=== PATIENT | female | born 1940 | race Caucasian/White ===

== ENCOUNTER 2021-01-22 12:21 | Emergency (ER) | payer MEDICARE, OTHER ==
[~2021-01-22] VITALS: Ht 162.6 cm; Wt 50.8 kg
--- NOTE | 2021-01-22 12:32 | NUR ---
TO ER BED 2, C/O DIZZINESS STARTED THIS MORNING, HX OF HTN, AAOX3, BREATHING EVEN AND NON LABORED, CHANGED INTO A GOWN, ATTACHED TO MONITOR, PROVIDED WARM BLANKET FOR COMFORT, FAMILY AT BEDSIDE
--- NOTE | 2021-01-22 12:32 | NUR ---
DR. CONSTANCE KELLER AT PT'S BEDSIDE
--- NOTE | 2021-01-22 12:51 | NUR ---
TAKEN TO CT
[2021-01-22 12:52] LABS: BASOPHILS % (AUTO) 0.5 % (0.0-2.0); EOSINOPHILS % (AUTO) 0.7 % (0.0-6.0); HEMATOCRIT 39 % (33-45); LYMPHOCYTES # (AUTO) 0.6 K/uL (0.8-4.8); LYMPHOCYTES % (AUTO) 6.9 % (20.0-44.0); MEAN CORPUSCULAR HGB CONC 33 g/dl (31.0-36.0); MEAN CORPUSCULAR VOLUME 89 fL (82-100); MONOCYTES # (AUTO) 0.2 K/uL (0.1-1.30); MONOCYTES % (AUTO) 3.1 % (2.0-12.0); NEUTROPHILS # (AUTO) 7.2 K/uL (1.8-8.9); NEUTROPHILS % (AUTO) 88.8 % (43.0-81.0); PLATELET COUNT (AUTO) 245 K/uL (150-450); RED BLOOD CELL COUNT(AUTO) 4.43 MIL/uL (4.0-5.2); WHITE BLOOD COUNT (AUTO) 8.1 K/uL (4.3-11.0)
[2021-01-22] MEDS ORDERED: IV NS 0.9% 1,000 ML BAG IV ONE (13:00)
--- NOTE | 2021-01-22 13:15 | NUR ---
URINE COLLECTED AND SENT TO LAB
[2021-01-22 13:34] LABS: BILIRUBIN,URINE NEGATIVE (NEGATIVE); COLOR,URINE YELLOW (YELLOW); LEUKOCYTE ESTERASE ,URINE NEGATIVE (NEGATIVE); NITRITE, URINE NEGATIVE (NEGATIVE); PROTEIN,URINE NEGATIVE (NEGATIVE); UGLUCOSE NEGATIVE (NEGATIVE); UROBILINOGEN,URINE 0.2 EU/dL (0.2)
[2021-01-22 14:01] LABS: BACTERIA,URINE Few /HPF (None Seen); RBC,URINE 0-2 /HPF (0-2); SQUAMOUS EPITHELIAL CELL,UR Rare /HPF (None Seen); WBC,URINE 0-2 /HPF (0-3)
[2021-01-22 14:11] LABS: CALCIUM, SERUM 8.7 mg/dL (8.5-10.1); CARBON DIOXIDE 28 mmol/L (21-32); CHLORIDE 100 mmol/L (98-107); CREATININE 1.2 mg/dL (0.6-1.3); GLUCOSE 154 mg/dL (74-106); POTASSIUM 3.5 mmol/L (3.5-5.1); SODIUM SERUM 136 mmol/L (136-145); UREA NITROGEN, BLOOD 25 mg/dL (7-18)
[2021-01-22 14:41] LABS: ALANINE AMINOTRANSFERASE 26 U/L (12-78); ALKALINE PHOSPHATASE 56 U/L (46-116); ASPARTATE AMINOTRANSFERASE 24 U/L (15-37); BILIRUBIN,DIRECT 0.1 mg/dL (0.0-0.2); BILIRUBIN,TOTAL 0.5 mg/dL (0.2-1.0); TOTAL PROTEIN, SERUM 7.2 g/dL (6.4-8.2)
--- NOTE | 2021-01-22 15:44 | NUR ---
IV removed. Catheter intact and site benign. Pressure and 4x4 applied to site. No bleeding noted.Patient discharged to home in stable condition. Written and verbal after care instructions given. Patient verbalizes understanding of instruction.
[2021-01-22 15:45] VITALS: BP 117/57
== END 2021-01-22 15:46 | disposition home or self-care (01) ==
LOC: ER 12:26
DX: F41.9 Anxiety disorder, unspecified (principal); R10.9 Unspecified abdominal pain; R42 Dizziness and giddiness; I10 Essential (primary) hypertension; Z98.890 Other specified postprocedural states; Z91.040 Latex allergy status
CPT/HCPCS: 36415; 70450; 71045; 80048; 80076; 81001; 84484; 85025; 93005 ×2; 96360; 99285; J7030